=== PATIENT | male | born 1980 | race Caucasian/White ===

== ENCOUNTER 2017-04-27 10:24 | Emergency (ER) | payer OTHER ==
[2017-04-27 10:31] VITALS: BP 148/90; PULSE 93; RESP 16; TEMP 97.8
--- NOTE | 2017-04-27 10:45 | ED ---
ENT HPI - General Chief complaint: Dental/Oral Stated complaint: MOUTH SWELLING Time Seen by Provider: 04/27/17 10:33 Source: patient, RN notes reviewed Mode of arrival: ambulatory Limitations: no limitations - History of Present Illness Initial comments: 36-year-old male presents emergency Department with chief complaint of mouth sores. Patient states started 3 days ago. Patient states that has progressed to his upper and lower gums and left right side. Patient also states that he notices sores on his tongue. Patient states that he started some lisinopril 2 weeks ago but states that he really hasn't been taking it consistently and states the sores on started 3 days ago. Patient denies any fevers or chills. Patient states she's been trying salt water gargles and hydroxide no relief. Patient states his gums are very sensitive at this time. Denies any bleeding or purulent drainage. - Related Data Home Medications Medication Instructions Recorded Confirmed Albuterol Inhaler [Ventolin 1 - 2 puff INHALATION Q6HR PRN 10/30/15 05/25/16 Inhaler] Ibuprofen [Motrin] 800 mg PO Q6HR PRN 05/25/16 05/25/16 Montelukast [Singulair] 10 mg PO HS 05/25/16 05/25/16 Lisinopril [Zestril] 5 mg PO DAILY 04/27/17 04/27/17 Previous Rx's Medication Instructions Recorded Chlorhexidine Gluconate [Peridex] 15 ml PO BID #473 ml 04/27/17 Clindamycin HCl 300 mg PO Q6HR #40 cap 04/27/17 Allergies Allergy/AdvReac Type Severity Reaction Status Date / Time Penicillins Allergy Unknown Verified 04/27/17 10:31 shellfish derived [Shellfish] Allergy Anaphylaxis Verified 04/27/17 10:31 Review of Systems ROS Statement: Those systems with pertinent positive or pertinent negative responses have been documented in the HPI. ROS Other: All systems not noted in ROS Statement are negative. Past Medical History Past Medical History: Asthma, Hypertension History of Any Multi-Drug Resistant Organisms: None Reported, MRSA Date of last positivie culture/infection: right elbow MDRO Source:: 2004 Past Surgical History: Orthopedic Surgery Additional Past Surgical History / Comment(s): right elbow, left knee Past Psychological History: No Psychological Hx Reported Smoking Status: Never smoker Past Alcohol Use History: None Reported Past Drug Use History: None Reported General Exam Limitations: no limitations General appearance: alert, in no apparent distress Head exam: Present: atraumatic, normocephalic, normal inspection Eye exam: Present: normal appearance, PERRL, EOMI. Absent: scleral icterus, conjunctival injection, periorbital swelling ENT exam: Present: mucous membranes moist, TM's normal bilaterally, normal external ear exam. Absent: normal oropharynx (Erythematous Dahms along the edges of the dentition, there are some open sores noted on upper and lower gumline) Neck exam: Present: normal inspection, full ROM. Absent: tenderness, meningismus, lymphadenopathy Respiratory exam: Present: normal lung sounds bilaterally. Absent: respiratory distress, wheezes, rales, rhonchi, stridor Cardiovascular Exam: Present: regular rate, normal rhythm, normal heart sounds. Absent: systolic murmur, diastolic murmur, rubs, gallop, clicks Course Vital Signs 04/27/17 10:27 Temperature 97.8 F Pulse Rate 93 Respiratory 16 Rate Blood Pressure 148/90 O2 Sat by Pulse 98 Oximetry Medical Decision Making - Medical Decision Making 36-year-old male presented for mouth sores. Patient appears to have periodontal disease/gingivitis. Patient we treated with. Since clindamycin. Patient is advised follow-up with dentist on Saturday and return if symptoms worsen. Disposition Clinical Impression: Gingivitis, Periodontal disease Disposition: HOME SELF-CARE Condition: Stable Instructions: Gingivitis (ED) Additional Instructions: Please return to the Emergency Department if symptoms worsen or any other concerns. Prescriptions: Chlorhexidine Gluconate [Peridex] 15 ml PO BID #473 ml Clindamycin HCl 300 mg PO Q6HR #40 cap Referrals: Keny Mendoza Jr, [Primary Care Provider] - 1-2 days Time of Disposition: 10:45
== END 2017-04-27 11:06 | disposition home or self-care (01) ==
LOC: EC 10:24
DX: K05.10 Chronic gingivitis, plaque induced (principal); K05.6 Periodontal disease, unspecified; J45.909 Unspecified asthma, uncomplicated; I10 Essential (primary) hypertension; Z79.899 Other long term (current) drug therapy; Z88.0 Allergy status to penicillin; Z91.013 Allergy to seafood
CPT/HCPCS: 99283

== ENCOUNTER 2017-06-07 08:31 | Emergency (ER) | payer OTHER ==
[2017-06-07] MEDS ORDERED: ONDANSETRON 4 MG/2 ML VIAL IM STA (08:49)
[2017-06-07] MEDS ORDERED: HYDROmorphone 1 MG/ML 1 ML SYRINGE IM STA (08:49)
[2017-06-07] MEDS ORDERED: methylPREDNISolone SOD SUCCI 125 MG/2 ML VIAL IV STA (08:49)
--- NOTE | 2017-06-07 08:53 | ED ---
Back Pain HPI - General Chief Complaint: Back Pain/Injury Stated Complaint: back pain Time Seen by Provider: 06/07/17 08:41 Source: patient, RN notes reviewed Limitations: physical limitation - History of Present Illness Initial Comments: 36-year-old male presents emergency Department with chief complaint of back pain. Patient states started on Saturday felt slightly sore but has progressively gotten worse. Patient states today was worse and unrelieved with his [place] 10/325 home. Patient denies any bowel, bladder incontinence or retention. Patient has a history of back pain states that he states his ongoing issues but progressively gotten worse. Patient has not seen an orthopedic surgeon for her neurosurgeon for his back. Patient denies any fever , chills, nausea, vomiting, diarrhea, dysuria or hematuria. Denies any chest pain or shortness breath. Patient states he was riding a car loader on Saturday and states that when the pain started and seen to worsen pain is better at rest. Pain radiates down his right leg primarily some dullness left. He states the pain radiates all the down to his right heel denies any paresthesias. - Related Data Home Medications Medication Instructions Recorded Confirmed Albuterol Inhaler [Ventolin 1 - 2 puff INHALATION Q6HR PRN 10/30/15 06/07/17 Inhaler] HYDROcodone/APAP 10-325MG [[place] 1 tab PO BID PRN 06/07/17 06/07/17 10-325] Naproxen Sodium [Anaprox DS] 550 mg PO Q12HR 06/07/17 06/07/17 Phentermine HCl [Adipex-P] 37.5 mg PO QAM 06/07/17 06/07/17 Previous Rx's Medication Instructions Recorded Methocarbamol [Robaxin] 500 mg PO TID PRN #15 tab 06/07/17 Ondansetron Odt [Zofran Odt] 4 mg PO Q8HR PRN #10 tab 06/07/17 methylPREDNISolone [Medrol Dose 4 mg PO DIRECTED #1 pack 06/07/17 Pack] oxyCODONE-APAP 7.5-325MG [Percocet 1 tab PO Q6HR PRN #20 tab 06/07/17 7.5-325 mg] Allergies Allergy/AdvReac Type Severity Reaction Status Date / Time iodine Allergy Anaphylaxis Verified 06/07/17 09:38 Penicillins Allergy Unknown Verified 06/07/17 09:38 shellfish derived [Shellfish] Allergy Anaphylaxis Verified 06/07/17 09:38 Review of Systems ROS Statement: Those systems with pertinent positive or pertinent negative responses have been documented in the HPI. ROS Other: All systems not noted in ROS Statement are negative. Past Medical History Past Medical History: Asthma, Hypertension History of Any Multi-Drug Resistant Organisms: None Reported, MRSA Date of last positivie culture/infection: right elbow MDRO Source:: 2004 Past Surgical History: Orthopedic Surgery Additional Past Surgical History / Comment(s): right elbow, left knee Past Psychological History: No Psychological Hx Reported Smoking Status: Never smoker Past Alcohol Use History: None Reported Past Drug Use History: None Reported General Exam Limitations: physical limitation General appearance: alert, in no apparent distress, obese Respiratory exam: Present: normal lung sounds bilaterally. Absent: respiratory distress, wheezes, rales, rhonchi, stridor Cardiovascular Exam: Present: regular rate, normal rhythm, normal heart sounds. Absent: systolic murmur, diastolic murmur, rubs, gallop, clicks GI/Abdominal exam: Present: soft, normal bowel sounds. Absent: distended, tenderness, guarding, rebound, rigid Extremities exam: Present: other (Pain with range of motion lower extremities though his full range of motion neurovascular intact equal color equal warmth pulses are equal bilateral lower extremity) Back exam: Present: tenderness (Lumbar region diffuse greater on the right lumbar), paraspinal tenderness. Absent: full ROM, vertebral tenderness Neurological exam: Present: alert, oriented X3, CN II-XII intact, reflexes normal. Absent: motor sensory deficit Skin exam: Present: warm, dry, intact, normal color. Absent: rash Course Vital Signs 06/07/17 08:36 Temperature 97.4 F L Pulse Rate 73 Respiratory 18 Rate Blood Pressure 134/72 O2 Sat by Pulse 96 Oximetry Medical Decision Making - Medical Decision Making 36-year-old male present emergency department for back pain. Patient has disc herniation L4-L5. Patient has no red flag symptoms no neurological deficits. Patient be given pain medication, steroids and muscle relaxers. Patient be referred to Dr. Cardenas return parameters were discussed. Disposition Clinical Impression: Lumbar disc herniation with radiculopathy Disposition: HOME SELF-CARE Condition: Stable Instructions: Lumbar Disc Herniation (ED) Additional Instructions: Please return to the Emergency Department if symptoms worsen or any other concerns. Prescriptions: Methocarbamol [Robaxin] 500 mg PO TID PRN #15 tab PRN Reason: muscle spasms methylPREDNISolone [Medrol Dose Pack] 4 mg PO DIRECTED #1 pack Ondansetron Odt [Zofran Odt] 4 mg PO Q8HR PRN #10 tab PRN Reason: Nausea oxyCODONE-APAP 7.5-325MG [Percocet 7.5-325 mg] 1 tab PO Q6HR PRN #20 tab PRN Reason: Pain Referrals: Keny Mendoza Jr, DO [Primary Care Provider] - 1-2 days Leon Tariq DO [Doctor of Osteopathic Medicine] - 1-2 days Time of Disposition: 09:46
[2017-06-07] MEDS ORDERED: DIPH,PERTUS(ACELL)TETVAC-LF 0.5 ML VIAL IM ONE (09:18)
--- NOTE | 2017-06-07 09:19 | CT ---
EXAMINATION TYPE: CT lumbar spine wo con DATE OF EXAM: 06/07/2017 9:07 AM COMPARISON: CT lumbar spine dated 10/30/2015 HISTORY: Severe low back pain. Pain down Rt leg CT DLP: 2454.7 mGycm Automated exposure control for dose reduction was used. Unenhanced CT of the lumbar spine was performed. Bone and soft tissue window settings are submitted as well as coronal and sagittal reconstructions. There is redemonstration of a component of congenital spinal canal stenosis at L4. The spinal canal m easures up to 1.2 cm. L1-L2: Normal disc space height. No disc herniation protrusion or central stenosis. No facet joint arthropathy. No evidence for foraminal encroachment. L2-L3: Normal disc space height. No disc herniation protrusion or central stenosis. No facet joint arthropathy. No evidence for foraminal encroachment. L3-L4: Broad-based disc bulge is present creating mild bilateral neural foraminal narrowing and mild to moderate spinal canal stenosis. L4-L5: There is new focality centrally of the disc suggesting with a central disc herniation superimp osed upon a broad-based disc bulge creating mild bilateral neural foraminal narrowing and mild spinal canal stenosis is noted disc herniation effaces the ventral thecal space. L5-S1: Intervertebral disc space narrowing is seen. There is redemonstration of the disc osteophyte complex, eccentric to the left which creates at least moderate left neural foraminal narrowing and mi ld right neural foraminal narrowing. No evidence of spinal canal stenosis. IMPRESSION: 1. New focality of the L4-5 disc suggesting a central disc herniation superimposed upon a broad-based disc bulge, which creates mild spinal canal stenosis and mild bilateral neural foraminal narrowing. 2. Unchanged moderate spinal canal stenosis at L3-L4 as well as at least moderate left neural foramin al narrowing and mild right neural foraminal narrowing at L5-S1.
[2017-06-07 09:44] VITALS: BP 129/63; PULSE 89; RESP 20; TEMP 98
== END 2017-06-07 10:06 | disposition home or self-care (01) ==
LOC: EC 08:31
DX: M51.16 Intervertebral disc disorders with radiculopathy, lumbar region (principal); I10 Essential (primary) hypertension; Z23 Encounter for immunization; Z79.899 Other long term (current) drug therapy; Z88.0 Allergy status to penicillin; Z88.8 Allergy status to other drugs, medicaments and biological substances; Z91.013 Allergy to seafood
CPT/HCPCS: 72131; 90715; 99283; 96374; 96372 ×2; 90471; J2930; J2405; J1170

== ENCOUNTER → 2017-07-18 | Outpatient (CLI) | payer OTHER ==
[2017-07-18 08:55] LABS: Appearance,Urine Clear (Clear); Bilirubin,Urine Negative (Negative); Glucose,Urine (UA) Negative (Negative); Ketones,Urine Negative (Negative); Leukocyte Esterase,Urine Negative (Negative); Nitrite,Urine Negative (Negative); PH, Urine 5.5 (5.0-8.0); Protein,Urine Negative (Negative); Specific Gravity,Urine 1.015 (1.001-1.035); UA Billing (MACRO vs. MICRO) CHEM; Urobilinogen,Urine <2.0 mg/dL (<2.0)
[2017-07-18 09:03] LABS: Basophils % (A) 0 %; CH 29.6; CHCM 34.1; Eosinophils # (A) 0.2 k/uL (0-0.7); Eosinophils % (A) 2 %; HCT 44.3 % (39.0-53.0); HDW 2.75; HGB 15.5 gm/dL (13.0-17.5); Luc # (Auto) 0.13; Luc % (Auto) 1; Lymphocytes # (A) 2.4 k/uL (1.0-4.8); Lymphocytes % (A) 27 %; MCH 30.5 pg (25.0-35.0); MCV 87.1 fL (80.0-100.0); Mean Platelet Volume 7.1; Monocytes # (A) 0.4 k/uL (0-1.0); Monocytes % (A) 5 %; Neutrophils # (A) 5.9 k/uL (1.3-7.7); Neutrophils % (A) 64 %; RBC 5.09 m/uL (4.30-5.90); RDW 13.8 % (11.5-15.5); WBC 9.1 k/uL (3.8-10.6); WBC (Perox) 9.34
[2017-07-18 09:09] LABS: Anion Gap 10 mmol/L; Blood Urea Nitrogen 18 mg/dL (9-20); Calcium 9.3 mg/dL (8.4-10.2); Carbon Dioxide 24 mmol/L (22-30); Chloride 106 mmol/L (98-107); Glucose 92 mg/dL (74-99); Non-African American GFR(MDRD) >60 (>60 ml/min/1.73 sqM); Potassium 4.2 mmol/L (3.5-5.1); Sodium 140 mmol/L (137-145)
[2017-07-18 09:10] LABS: INR 0.9 (<1.2); Partial Thromboplastin Time 25.2 sec (22.0-30.0); Prothrombin Time 9.6 sec (9.0-12.0)
== END | disposition home or self-care (01) ==
LOC: LABPAT 08:27
PROVIDERS: ATTEND Orthopaedic Surgery Orthopaedic Surgery of the Spine
DX: Z01.812 Encounter for preprocedural laboratory examination (principal); M51.27 Other intervertebral disc displacement, lumbosacral region
CPT/HCPCS: 36415; 80048; 81003; 85025; 85610; 85730

== ENCOUNTER 2017-07-22 12:59 | Observation (INO) | payer OTHER ==
[2017-07-18 11:49] VITALS: BMI 46.0
[~2017-07-22 12:59] MED LIST: BACITRACIN 50,000 UNIT, POLYMYXIN B 500,000 UNIT in SODIUM CHLORIDE 0.9% IRRIGATIO 1,00... IRRIGATION ONE; CLINDAMYCIN 600 MG in DEXTROSE 5% IN WATER 50 ML IVPB ONE; DEXAMETHASONE SOD PHOSPHATE 10 MG/ML 1 ML VIAL IV ONE; ONDANSETRON 4 MG/2 ML VIAL IVP ONE
[2017-07-22] MEDS: LACTATED RINGERS 1,000 ML IV SCH (13:36)
[2017-07-22] MEDS ORDERED: LIDOCAINE 1% 20 ML VIAL (10MG/ML) FOR IV START INTRADERMA ONE (13:36)
[2017-07-22] MEDS ORDERED: GLYCOPYRROLATE 0.2 MG/ML 2 ML VIAL ONE (15:23)
[2017-07-22] MEDS ORDERED: LIDOCAINE 1% INJ 10MG/ML (20 ML MDV) ONE (15:23)
[2017-07-22] MEDS ORDERED: PROPOFOL 10 MG/ML 20 ML VIAL IV ONE (15:23)
[2017-07-22] MEDS ORDERED: ROCURONIUM BROMIDE 10 MG/ML 10 ML VIAL IV ONE (15:23)
[2017-07-22] MEDS ORDERED: fentaNYL (PF) 50 MCG/ML 2 ML AMP ONE (15:23)
[2017-07-22] MEDS ORDERED: MIDAZOLAM 2 MG/2 ML VIAL ONE (15:23)
[2017-07-22] MEDS ORDERED: NEOSTIGMINE 1 MG/ML 10 ML VIAL ONE (15:23)
[2017-07-22] MEDS ORDERED: SUCCINYLCHOLINE CHLORIDE VIAL 200 MG/10 ML VIAL IV ONE (15:23)
[2017-07-22] MEDS ORDERED: VANCOMYCIN 2,000 MG in SODIUM CHLORIDE 0.9% 500 ML IVPB ONE (15:45)
[2017-07-22] MEDS ORDERED: GELATIN SPONGE,ABSORB (LARGE) 1 EACH SPONGE TOPICAL ONE (16:13)
[2017-07-22] MEDS ORDERED: BUPIVACAINE (PF) 0.25% 30 ML VIAL SQ ONE (16:13)
[2017-07-22] MEDS ORDERED: THROMBIN (BOVINE) 5,000 UNIT VIAL TOPICAL ONE (16:14)
[2017-07-22] MEDS ORDERED: methylPREDNISolone ACETATE 80 MG/ML 1 ML VIAL MISCELLANE ONE (17:06)
[2017-07-22] MEDS ORDERED: BENZOCAINE/MENTHOL LOZENG 1 EACH LOZENGE MUCOUS MEM PRN (17:28)
[2017-07-22] MEDS ORDERED: KETOROLAC 30 MG/ML 1 ML VIAL IVP PRN (17:28)
[2017-07-22] MEDS ORDERED: HYDROmorphone 1 MG/ML 1 ML SYRINGE IVP PRN (17:28)
[2017-07-22] MEDS ORDERED: MAGNESIUM HYDROXIDE 2,400 MG/10 ML CUP PO PRN (17:28)
[2017-07-22] MEDS ORDERED: DIAZEPAM 5 MG TAB PO PRN (17:28)
[2017-07-22] MEDS ORDERED: HYDROcodone/APAP 5-325MG 1 EACH TAB PO PRN ×2 (17:28)
[2017-07-22] MEDS ORDERED: SODIUM CHLORIDE 0.9% 1,000 ML IV SCH (17:30)
[2017-07-22] MEDS ORDERED: METHOCARBAMOL 500 MG TAB PO PRN (17:34)
[2017-07-22] MEDS ORDERED: ONDANSETRON ODT 4 MG TAB PO PRN (17:34)
[2017-07-22] MEDS ORDERED: HYDROcodone/APAP 10-325MG 1 EACH TAB PO PRN (17:34)
[2017-07-22] MEDS ORDERED: ALBUTEROL NEBULIZED 2.5 MG/3 ML INHALATION PRN (17:34)
--- NOTE | 2017-07-22 17:41 | P.OP ---
Date of Procedure: 07/22/17 Preoperative Diagnosis: Herniated nucleus pulposis L5-S1, left lower extremity radiculopathy, morbid obesity Postoperative Diagnosis: Same plus degenerative disc disease Anesthesia: GETA Pathology: none sent Condition: stable Disposition: PACU Description of Procedure: BRIEF OPERATIVE NOTE Preoperative Diagnosis: Herniated nucleus pulposis L5-S1, left lower extremity radiculopathy, morbid obesity, degenerative disc disease Postoperative Diagnosis: Same Procedure: Laminectomy and decompression L5-S1 Discectomy for decompression L5-S1 Increased level of difficulty for the case due to patient's body habitus and morbid obesity Surgeon: Dr. Tariq Conveyor Belt Repairer: Catracho Gomez is present throughout the entire the case persistence during positioning, dissection, exposure, visualization, and all crucial elements of the case as well as closure. Anesthesia: General anesthesia Estimated blood loss: Approximately 200 mL Complications: None apparent Components implanted: None Disposition: To recovery room in good stable condition. OPERATIVE INDICATIONS The patient has been having issues in their lower back and lower extremities chronically over the past year. He is having worsening of his symptoms particularly at his lower extremities with radicular symptoms. He was found have a large disc herniation L5-S1 which correlate well with his back and lower extremity symptoms. The patient has been through conservative treatment. He is not having any prolonged benefit despite aggressive conservative treatment. He was having worsening of his ability to do activities and is overall function due to his back and lower extremity symptoms. We discussed various treatment options including surgery, and the patient wishes to proceed with surgery We discussed the risk, patient's alternatives and benefits of surgery including but not limited to, risk of bleeding risk of infection, risk of need for further surgery, risk of decreased, loss of motion, loss of function, nerve damage, paralysis, heart attack, blindness and . OPERATIVE SUMMARY After discussing all the risks, patient alternatives and benefits at length, the patient elected to proceed with surgical intervention, signed informed consent, and presented for their procedure. The patient was seen and examined in the preoperative holding area and the surgical site was marked. The patient was given antibiotics and brought to the operating room. The patient was sedated and intubated by anesthesia in standard fashion. The patient was positioned on to the operating room table in a prone position on the appropriate frame which was well-padded and well molded. We were careful to pad any bony prominences and pressure points. We were careful to maintain the patient's cervical spine and good neutral alignment and position throughout. The patient was prepped and draped in a normal standard fashion. An appropriate timeout and keystone protocol performed. We were able to proceed with the surgery. Fluoroscopy was utilized to establish the appropriate level. The local wound area was infiltrated with local anesthetic. An incision was made at the midline longitudinally over the appropriate levels over L5-S1. Dissection was taken down subcutaneously to the level of the fascia which was split midline. The patient is approximately 400 pounds and dissection with retraction was more time consuming and difficult due to his body habitus. This added difficulties in time due to the exposure as well as the operation itself. Dissection was taken over the lamina. Intraoperative fluoroscopy was taken which showed a marker at the appropriate level of L5-S1. With the appropriate level positively confirmed, we were able to proceed with laminectomy. The wound was copiously irrigated and suctioned dry as had been done periodically throughout the case. I performed a laminectomy with a combination of curettes and a high-speed bur and Kerrison rongeurs. A small medial facetectomy was performed again further access. A partial foraminotomy was also performed. Portions of the ligamentum flavum were taken down to expose the dura and traversing nerve root. I was able to mobilize the traversing nerve root and gain access to the disc space. Note was made of obvious compression from the disc. Note was made that there was significant posterior osteophytic spurring and calcification of the posterior disc. This was overlapping the posterior disc itself and causing impingement on the traversing nerve root and thecal sac. The posterior spur had removed piecemeal with pituitaries and Kerrison rongeurs and curettes. This took great care and meticulous technique, but I was able to remove significant portions of the posterior osteophyte in order to access the soft disc material. Protecting the soft tissue structures, a small annulotomy was established. I was able to perform discectomy and remove any extruded disc fragments and any loose fragments from within the disc itself. I was able to further remove posterior osteophyte and extruded fragments. This was all done piecemeal. I was able to get good decompression at the area with no further fragments noted. There is some significant disc desiccation noted. I tried to preserve the disc annulus that appeared stable. There were no further extruded fragments noted. There is no evidence of dural tear or leak. Good hemostasis maintained. The wound was copiously irrigated and suctioned dry. Good decompression and discectomy was noted. We were able to proceed with closure. The fascia was closed for a watertight closure. The subcuticular tissue was closed with absorbable suture. The wound was cleaned and dried and dressed with the appropriate dressing. The drapes were broken down. The patient was gently rolled back onto their hospital bed being careful to maintain their cervical spine and good neutral alignment and position. They were woken up by anesthesia, extubated, and brought to the recovery room in good stable condition. The patient will be admitted to the hospital for observation and for appropriate postoperative care, medical management and monitoring. We will continue to follow them closely about the postoperative course.
--- NOTE | 2017-07-22 18:13 | XR ---
EXAMINATION TYPE: XR lumbar spine 1V, FL guidance operating room DATE OF EXAM: 07/22/2017 CLINICAL HISTORY: Back pain. Lumbar discectomy. TECHNIQUE: Fluoroscopy. COMPARISON: None. FINDINGS/IMPRESSION: Fluoroscopic guidance was provided during procedure performed by Dr. Tariq. A total of 3 seconds of fluoroscopic time was utilized during the procedure and 1 spot images was acqui red.
[2017-07-22 18:16] VITALS: RESP 16
[2017-07-22] MEDS: HYDROmorphone 1 MG/ML 1 ML SYRINGE IVP PRN ×5 (18:23→23:42)
[2017-07-22] MEDS ORDERED: SODIUM CHLORIDE 0.9% 1,000 ML IV ONE (19:14)
[2017-07-22] MEDS: ONDANSETRON 4 MG/2 ML VIAL IVP PRN (19:56)
[2017-07-22] MEDS: NAPROXEN 250 MG TAB PO SCH (22:53)
[2017-07-22 23:37] VITALS: TEMP 97.9
[2017-07-23] MEDS: HYDROmorphone 1 MG/ML 1 ML SYRINGE IVP PRN ×2 (03:33→10:44)
[2017-07-23] MEDS: LACTATED RINGERS 1,000 ML IV SCH (05:59)
[2017-07-23 07:40] VITALS: BP 133/73; PULSE 84
[2017-07-23] MEDS: NAPROXEN 250 MG TAB PO SCH (08:27)
--- NOTE | 2017-07-23 08:50 | P.DS ---
Providers Date of admission: 07/23/17 04:27 Expected date of discharge: 07/23/17 Attending physician: Leon Tariq Primary care physician: Keny Mendoza - Discharge Diagnosis(es) (1) Lumbar back pain with radiculopathy affecting left lower extremity Current Visit: Yes Status: Acute (2) Lumbar degenerative disc disease Current Visit: Yes Status: Acute (3) Morbid obesity with BMI of 45.0-49.9, adult Current Visit: Yes Status: Acute (4) Herniated nucleus pulposus, L5-S1 Current Visit: Yes Status: Acute Hospital Course: This is a pleasant 37-year-old male who presented with L5-S1 herniated nucleus pulposus, left lower extremity radiculopathy, degenerative disc disease, and morbid obesity who failed outpatient conservative therapy. He was admitted for L5-S1 laminectomy and decompression with discectomy. The patient tolerated the procedure well and did well postoperatively. He continues to have some pressure and pain and surgical site, which is expected. He states his left lower extremity radiculopathy symptoms have already significantly improved postsurgically. Condition on day of discharge stable. Patient will be discharged home. Patient was cleared preoperatively for surgery by Dr. Mendoza. Patient currently denies any nausea, vomiting, fever, or chills. Patient is eating and voiding freely without difficulty. Patient may shower Tegaderm dressing intact. Patient may remove Tegaderm dressing in 3 days and shower without a dressing at that time. Patient should keep Steri-Strips intact and allow them to fall off naturally. Patient should refrain from driving until at least after their first follow-up appointment in the office. Patient should avoid excessive bending, lifting, and twisting; no lifting greater than 10 pounds. Patient may resume home medications as previously prescribed as needed for relief of his symptoms. He may resume [place] 10 mg/325 [address] as prescribed [address] Desai. We discussed that if he needs more of this medication he may contact Dr. Desai or he may contact our office for a refill prescription. Physical Exam on day of discharge: Patient is awake, alert, and oriented 3 Vital signs stable Good chest excursion with deep inspiration and expiration Abdomen soft nontender No signs or symptoms of DVT; no calf pain Extensor hallucis longus, plantarflexion, and dorsiflexion positive sustained bilateral lower extremities Incision is clean, dry, and intact; no erythema, purulence, or signs of infection Tegaderm dressing and non-stick Telfa intact Procedures: L5-S1 laminectomy and decompression with discectomy. Patient Condition at Discharge: Stable Plan - Discharge Summary New Discharge Prescriptions: No Action Albuterol Inhaler [Ventolin Inhaler] 1 - 2 puff INHALATION RT-Q6H PRN PRN Reason: Shortness Of Breath Naproxen Sodium [Anaprox DS] 550 mg PO Q12HR HYDROcodone/APAP 10-325MG [[place] 10-325] 1 tab PO BID PRN PRN Reason: Pain Phentermine HCl [Adipex-P] 37.5 mg PO QAM Methocarbamol [Robaxin] 500 mg PO TID PRN #15 tab PRN Reason: muscle spasms Ondansetron Odt [Zofran Odt] 4 mg PO Q8HR PRN #10 tab PRN Reason: Nausea ALPRAZolam [Xanax] 0.5 mg PO DAILY PRN PRN Reason: Anxiety amLODIPine BESYLATE [Norvasc] 5 mg PO QAM Hydrochlorothiazide [Hydrochlorothiazide] 25 mg PO QAM Discharge Medication List Albuterol Inhaler [Ventolin Inhaler] 1 - 2 puff INHALATION RT-Q6H PRN 10/30/15 [ History] HYDROcodone/APAP 10-325MG [[place] 10-325] 1 tab PO BID PRN 06/07/17 [History] Methocarbamol [Robaxin] 500 mg PO TID PRN #15 tab 06/07/17 [Rx] Naproxen Sodium [Anaprox DS] 550 mg PO Q12HR 06/07/17 [History] Ondansetron Odt [Zofran Odt] 4 mg PO Q8HR PRN #10 tab 06/07/17 [Rx] Phentermine HCl [Adipex-P] 37.5 mg PO QAM 06/07/17 [History] ALPRAZolam [Xanax] 0.5 mg PO DAILY PRN 07/18/17 [History] Hydrochlorothiazide [Hydrochlorothiazide] 25 mg PO QAM 07/18/17 [History] amLODIPine BESYLATE [Norvasc] 5 mg PO QAM 07/18/17 [History] Follow up Appointment(s)/Referral(s): Kiba,Catracho, PAC [PHYSICIAN DIMENSION QUARRY SUPERVISOR] - 2 Weeks (Patient may follow-up with Catracho Mendez PA-C or Dr. Ambrosio Tariq at [facility] in 2-3 weeks following discharge. ) Activity/Diet/Wound Care/Special Instructions: 1. Patient may shower with Tegaderm dressing intact. 2. Patient may remove Tegaderm dressing in 3 days and shower without a dressing at that time. 3. Patient should keep Steri-Strips intact and allow them to fall off naturally. 4. Patient should refrain from driving until at least after their first follow- up appointment in the office. 5. Patient should avoid excessive bending, twisting, and lifting; no lifting greater than 10 pounds 6. Take medications as prescribed 7. Do not soak in tub Discharge Disposition: HOME SELF-CARE
[2017-07-23] MEDS ORDERED: VANCOMYCIN 1,500 MG in SODIUM CHLORIDE 0.9% 250 ML IVPB ONE (09:00)
[2017-07-23] MEDS ORDERED: NON-FORMULARY DRUG (Phentermine Hcl [Adipex-P] 37.5 MG) PO SCH (09:00)
[2017-07-23] MEDS ORDERED: HYDROCHLOROTHIAZIDE 25 MG TAB PO SCH (09:00)
[2017-07-23] MEDS ORDERED: SENNOSIDES-DOCUSATE SODIUM 1 EACH TAB PO SCH (09:00)
[2017-07-23] MEDS ORDERED: amLODIPine 5 MG TAB PO SCH (09:00)
[2017-07-23] MEDS ORDERED: FAMOTIDINE 20 MG TAB PO SCH (09:00)
[2017-07-23] MEDS: ONDANSETRON 4 MG/2 ML VIAL IVP PRN (10:44)
== END 2017-07-23 11:23 | disposition home or self-care (01) ==
LOC: OR 12:59 → 5ONC 17:31 → OR 07-23 04:27 → 5ONC 07-23 04:27
PROVIDERS: ADMIT Orthopaedic Surgery Orthopaedic Surgery of the Spine; ATTEND Orthopaedic Surgery Orthopaedic Surgery of the Spine
DX: M51.17 Intervertebral disc disorders with radiculopathy, lumbosacral region (principal); E66.01 Morbid (severe) obesity due to excess calories; Z68.42 Body mass index [BMI] 45.0-49.9, adult; I10 Essential (primary) hypertension; J45.909 Unspecified asthma, uncomplicated; Z88.8 Allergy status to other drugs, medicaments and biological substances; Z88.3 Allergy status to other anti-infective agents; Z88.0 Allergy status to penicillin; Z91.013 Allergy to seafood; Z79.899 Other long term (current) drug therapy; Z79.52 Long term (current) use of systemic steroids
CPT/HCPCS: 86900; 86901; 86850; 72020; 63030; G0378; J2250; J3370 ×2; J0330; J1040; J2710; J2405 ×2; J2001; J3010; J1885; J1170 ×2; J2704

== ENCOUNTER → 2022-10-02 | Outpatient (CLI) | payer OTHER ==
--- NOTE | 2022-10-03 09:35 | MR ---
EXAMINATION TYPE: MR knee LT wo con DATE OF EXAM: 10/02/2022 COMPARISON: NONE HISTORY: Lt knee pain and swelling for years per patient. TECHNIQUE: Multiplanar, multisequence images of the knee is performed without IV contrast. FINDINGS: Slightly suboptimal due to motion artifact MEDIAL MENISCUS: Anterior and posterior horns are intact without tear. LATERAL MENISCUS: Anterior and posterior horns are intact without tear. CRUCIATE LIGAMENTS: The anterior and posterior cruciate ligaments are intact and unremarkable. COLLATERAL LIGAMENTS: The medial collateral ligament and lateral collateral ligament complex are inta ct and unremarkable. EXTENSOR MECHANISM: Visualized quadriceps and patellar tendons are intact. EFFUSION: No significant suprapatellar joint effusion. POPLITEAL CYST: No popliteal/gomes cyst. TRICOMPARTMENT SPACES: Mild narrowing with mild to moderate spurring patellofemoral compartment CARTILAGE: Tricompartment articular cartilage is preserved. BONE MARROW SIGNAL: No focal abnormal marrow signal is appreciated. OTHER: No additional significant abnormality is appreciated. IMPRESSION: No meniscal or ligamentous tear is seen.
== END | disposition home or self-care (01) ==
LOC: RADMRIMAIN 17:02
PROVIDERS: ATTEND Physician Assistant
DX: M23.8X2 Other internal derangements of left knee (principal); M25.562 Pain in left knee; M25.462 Effusion, left knee

== ENCOUNTER → 2023-05-29 | Outpatient (CLI) | payer OTHER ==
--- NOTE | 2023-06-02 21:02 | MR ---
EXAMINATION TYPE: MR knee LT wo con DATE OF EXAM: 05/29/2023 COMPARISON: 10/02/2022 HISTORY: 42-year-old male with M25.462 PAIN IN LEFT KNEE, M75.42 Lt knee pain and swelling TECHNIQUE: Multiplanar, multisequence imaging of the left knee is performed without IV contrast. FINDINGS: The ACL, PCL, and LCL complex are intact. There is mild edema on either side of the intact MCL. In addition, there is mild fluid along the pes anserinus bursa. There is an oblique tear involving the body of the medial meniscus which is mildly extruded. Mild sup erficial cartilage thinning throughout the medial compartment. The lateral meniscus is intact. Lateral compartment articular cartilage volume is maintained. Mild to moderate irregular cartilage thinning throughout the patellar facets of the patellofemoral co mpartment. There is slight lateral patellar translation. Extensor mechanism is intact. Mild inhomogeneous signal at the quadriceps insertion. There is a moderate knee joint effusion without Mclaughlin's cyst. Nonspecific mild subcutaneous soft tissue swelling. Normal popliteal artery anatomy. Mild generalized muscle atrophy. No suspicious bone marrow replaceme nt. IMPRESSION: 1. Grade 1 MCL sprain. 2. Mild pes anserinus bursitis. 3. Oblique tear involving the mildly extruded body of the medial meniscus. 4. Mild overall patellofemoral compartmental OA. 5. Moderate joint effusion. Mild insertional quadriceps tendinosis.
== END | disposition home or self-care (01) ==
LOC: RADMRIMAIN 13:57
PROVIDERS: ATTEND Orthopaedic Surgery
DX: M17.12 Unilateral primary osteoarthritis, left knee (principal); S83.412A Sprain of medial collateral ligament of left knee, initial encounter; S83.242A Other tear of medial meniscus, current injury, left knee, initial encounter; M70.52 Other bursitis of knee, left knee; M75.42 Impingement syndrome of left shoulder; M25.462 Effusion, left knee; M67.864 Other specified disorders of tendon, left knee; M76.52 Patellar tendinitis, left knee; M23.8X2 Other internal derangements of left knee; X58.XXXA Exposure to other specified factors, initial encounter

== ENCOUNTER → 2023-09-20 | Outpatient (CLI) | payer OTHER ==
--- NOTE | 2023-09-22 10:06 | US ---
EXAMINATION TYPE: US kidneys/renal and bladder DATE OF EXAM: 09/20/2023 COMPARISON: NONE CLINICAL INDICATION: Male, 43 years old with history of R31.9 HEMATURIA, UNSPECIFIED,R35.1; Hematuria . EXAM MEASUREMENTS: Right Kidney: 12.2 x 6.3 x 5.7 cm Left Kidney: 13.3 x 6.1 x 8.4 cm Very limited due to patient body habitus and gas. Right Kidney: No hydronephrosis or masses seen Left Kidney: Partially visualized secondary to overlying bowel gas, no significant abnormalities appr eciated. Bladder: Appears wnl Bilateral Jets seen: Yes IMPRESSION: Limited exam secondary to shadowing bowel gas, without significant renal abnormality.
== END | disposition home or self-care (01) ==
LOC: RADUSWWP 15:24
PROVIDERS: ATTEND Family Medicine
DX: R31.9 Hematuria, unspecified (principal); R35.1 Nocturia; R14.3 Flatulence
CPT/HCPCS: 76770

== ENCOUNTER → 2024-01-30 | Outpatient (CLI) | payer OTHER ==
--- NOTE | 2024-01-31 11:48 | MR ---
EXAMINATION TYPE: MR knee RT wo con DATE OF EXAM: 01/30/2024 COMPARISON: None HISTORY: Rt knee pain TECHNIQUE: Multiplanar, multisequence imaging of the right knee is performed without IV contrast. FINDINGS: The exam is moderately limited by involuntary patient motion. There is no bone contusion or fracture. There is a grade 2 strain of the medial collateral ligament. The cruciate and lateral collateral liga ments are intact. Evaluation of the medial meniscus is limited due to motion degradation of the image but a tear of the posterior horn and body of the medial meniscus is strongly suspected. The lateral meniscus is intact . The cruciate and collateral ligaments are intact There is a large subchondral cyst in the subchondral interspinous portion of the tibial plateau. Ther e is mild thinning of the articular cartilage of the medial compartment and knee. There is minimal joint fluid. The patellofemoral cartilage is normal in thickness but is diffusely abnormal in signal intensity on the lateral facet consistent with chondromalacia patella. Quadriceps and patellar tendons are intact. IMPRESSION: 1. Grade 2 strain of the medial meniscus. 2. High suspicion for medial meniscal tear. Exam is limited by involuntary patient motion. 3. Chondromalacia patella. 4. Mild osteoarthritis of the medial compartment
== END | disposition home or self-care (01) ==
LOC: RADMRIMAIN 06:06
PROVIDERS: ATTEND Orthopaedic Surgery
DX: M23.303 Other meniscus derangements, unspecified medial meniscus, right knee (principal); M17.11 Unilateral primary osteoarthritis, right knee; M22.41 Chondromalacia patellae, right knee; S83.241A Other tear of medial meniscus, current injury, right knee, initial encounter; X58.XXXA Exposure to other specified factors, initial encounter

== ENCOUNTER → 2024-02-28 | Outpatient (CLI) | payer OTHER ==
[2024-02-28 10:50] LABS: HCT 46.3 % (39.6-50.0); HGB 15.2 g/dL (13.0-17.0); MCHC 32.8 g/dL (32.0-37.0); MCV 91.3 FL (80.0-97.0); Mean Platelet Volume 10.5 FL (9.5-12.2); NRBC Per 100 WBC 0 X 10*3/uL (0.00-0.01); Platelet Count 260 X 10*3/uL (140-440); RBC 5.07 X 10*6/uL (4.40-5.60); RDW 13.4 % (11.5-14.5); WBC 7.72 X 10*3/uL (4.50-10.00)
== END | disposition home or self-care (01) ==
LOC: LABPAT 07:04
PROVIDERS: ATTEND Orthopaedic Surgery
DX: Z01.812 Encounter for preprocedural laboratory examination (principal)
CPT/HCPCS: 84132; 85027; 93005

== ENCOUNTER 2024-03-03 11:58 | Day surgery (SDC) | payer OTHER ==
[2024-02-27 14:43] VITALS: BMI 45.1
[~2024-03-03 11:58] MED LIST changes: -BACITRACIN 50,000 UNIT, POLYMYXIN B 500,000 UNIT in SODIUM CHLORIDE 0.9% IRRIGATIO 1,00... IRRIGATION ONE; -CLINDAMYCIN 600 MG in DEXTROSE 5% IN WATER 50 ML IVPB ONE; -DEXAMETHASONE SOD PHOSPHATE 10 MG/ML 1 ML VIAL IV ONE; +HYDROmorphone 0.5 MG/0.5 ML SYRINGE IVP PRN; +MIDAZOLAM 2 MG/2 ML VIAL IV PRN; -ONDANSETRON 4 MG/2 ML VIAL IVP ONE; +Pre Op ABX Message 1 EACH MISC MISCELLANE ONE
[2024-03-03] MEDS: LACTATED RINGERS 1,000 ML IV SCH (12:20)
[2024-03-03] MEDS: DEXAMETHASONE SOD PHOSPHATE 4 MG/ML 1 ML VIAL IV ONE (12:50)
[2024-03-03] MEDS: SCOPOLAMINE 1 MG/72 HR PATCH TRANSDERM ONE (12:50)
[2024-03-03] MEDS: ONDANSETRON 4 MG/2 ML VIAL IVP ONE ×2 (12:50→15:30)
[2024-03-03] MEDS: SODIUM CHLORIDE 0.9% 100 ML with ceFAZolin 3,000 MG IV ONE (13:04)
[2024-03-03 13:18] VITALS: TEMP 97.8
[2024-03-03] MEDS ORDERED: HYDROmorphone (PF) 1 MG/ML ONE (13:59)
[2024-03-03] MEDS ORDERED: PROPOFOL 10 MG/ML 20 ML VIAL IV ONE (13:59)
[2024-03-03] MEDS ORDERED: MIDAZOLAM 2 MG/2 ML VIAL ONE (13:59)
[2024-03-03] MEDS ORDERED: fentaNYL (PF) 50 MCG/ML 2 ML AMP ONE (13:59)
[2024-03-03] MEDS ORDERED: SUCCINYLCHOLINE CHLORIDE 200 MG/10 ML VIAL IV ONE (13:59)
[2024-03-03] MEDS ORDERED: KETOROLAC 30 MG/ML 1 ML VIAL ONE (13:59)
[2024-03-03] MEDS ORDERED: LIDOCAINE 2% (PF) 20 MG/ML 5 ML VIAL ONE (13:59)
[2024-03-03] MEDS ORDERED: ceFAZolin 1 GM/50 ML BAG (PMX) ONE (13:59)
[2024-03-03] MEDS: BUPIVACAINE (PF) 0.5% 30 ML VIAL MISCELLANE ONE ×2 (14:00→14:35)
--- NOTE | 2024-03-03 14:42 | P.OP ---
Date of Procedure: 03/03/24 Preoperative Diagnosis: 1. torn medial meniscus right knee 2. Osteoarthritis right knee Postoperative Diagnosis: 1. torn medial meniscus right knee 2. Grade 2 chondromalacia patellofemoral compartment, grade 2-3 chondromalacia medial femoral compartment 3. Synovitis Procedure(s) Performed: 1. arthroscopy of the right knee with partial medial meniscectomy (30% of the meniscus excised) 2. chondroplasty patellofemoral compartment and medial femoral compartment 3. Partial synovectomy of the medial femoral, lateral femoral, and patellofemoral compartments. Anesthesia: GETA Surgeon: Jeff Reece Estimated Blood Loss (ml): 5 Pathology: none sent Condition: stable Disposition: floor Indications for Procedure: this is a 43-year-old gentleman presented to the office with pain in his right knee. An MRI demonstrated torn medial meniscus and after discussing the surgica l and nonsurgical treatment options with him at length, he wishes to proceed with arthroscopic debridement of his right knee. Informed consent was obtained. Operative Findings: the operative findings are consistent with a torn medial meniscus of the right knee, grade 2 chondromalacia the patellofemoral compartment, grade 2-3 chondral malacia patellofemoral compartment,and synovitis Description of Procedure: Patient was seen and evaluated in the preoperative area, the operative site was marked with a skin marker. The patient was then brought to the operating room and given 3 g of Ancef intravenously. A general anesthetic was administered by the anesthesia department. Tourniquet was placed on the right upper thigh and the left lower extremity was then prepped and draped in usual sterile fashion. A universal timeout was then performed confirming the patient's name, surgical site, ALLERGIES, and consent. The limb was then exsanguinated and tourniquet insufflated to 300 mmHg. Standard inferior medial and inferior lateral portals were established in the knee. The trochar was inserted in the inferolateral portal. Examination began at the patellofemoral joint. There is noted to be grade 2 chondral malacia the patellofemoral compartment and a moderate amount of synovitis. Next the medial compartment was visualized. There was a tear of the posterior horn of the medial meniscus. There was grade 2-3 chondral malacia the mediofemoral compartment and synovitis. The notch area was then visualized and the ACL was intact. The Lateral compartment was then visualized and there was a no tear of the lateral meniscus. There was no evidence of chondromalacia, but a mild amount of synovitis. Next, using an arthroscopic shaver and a biter, partial medial meniscectomy was performed stable margins. Approximately 30% of the medial meniscus was excised. a chondroplasty was performed of the patellofemoral and medial femoral compartments. A partial synovectomy is performed of the medial femoral, lateral femoral and patellofemoral compartments of the knee. Knee was then copiously irrigated, instruments removed, incisions were closed with 4-0 nylon. 30 mL of quarter percent plain Marcaine was injected sterilely into the surgical area. A sterile dressing was then applied, and the tourniquet was released. Patient was then transferred to recovery room in stable condition.condition.
[2024-03-03] MEDS: traMADol 50 MG TAB ONE (15:55)
[2024-03-03 16:54] VITALS: RESP 14
[2024-03-03 18:10] VITALS: BP 107/67; PULSE 98
== END 2024-03-03 17:30 | disposition home or self-care (01) ==
LOC: OR 11:58
PROVIDERS: ATTEND Orthopaedic Surgery
DX: S83.241A Other tear of medial meniscus, current injury, right knee, initial encounter (principal); M17.11 Unilateral primary osteoarthritis, right knee; M65.9 Synovitis and tenosynovitis, unspecified; M22.41 Chondromalacia patellae, right knee; I10 Essential (primary) hypertension; J45.909 Unspecified asthma, uncomplicated; Z79.51 Long term (current) use of inhaled steroids; Z79.899 Other long term (current) drug therapy; Z88.0 Allergy status to penicillin; Z91.013 Allergy to seafood; X58.XXXA Exposure to other specified factors, initial encounter
CPT/HCPCS: 29881; J2250; J0330; J1100; J2405; J0690 ×2; J3010; J1885; J1170; J2704; J2001; J0665

== ENCOUNTER 2024-07-10 13:11 | Emergency (ER) | payer OTHER ==
[2024-07-10 13:34] VITALS: BP 139/74; PULSE 92; RESP 18; TEMP 97.9
[2024-07-10] MEDS ORDERED: ASPIRIN 81 MG PO STA (13:36)
[2024-07-10 14:04] LABS: Basophils # (A) 0.1 k/uL (0-0.2); Basophils % (A) 1 %; Eosinophils # (A) 0.3 k/uL (0-0.7); Eosinophils % (A) 3 %; HCT 45.9 % (39.0-53.0); HGB 15.3 gm/dL (13.0-17.5); Lymphocytes # (A) 2.3 k/uL (1.0-4.8); Lymphocytes % (A) 30 %; MCH 29.5 pg (25.0-35.0); MCHC 33.3 g/dL (31.0-37.0); MCV 88.6 fL (80.0-100.0); Mean Platelet Volume 7.7; Monocytes # (A) 0.3 k/uL (0-1.0); Monocytes % (A) 4 %; Neutrophils # (A) 4.8 k/uL (1.3-7.7); Neutrophils % (A) 62 %; Platelet Count 273 k/uL (150-450); RBC 5.18 m/uL (4.30-5.90); RDW 13.5 % (11.5-15.5); WBC 7.7 k/uL (3.8-10.6)
[2024-07-10 14:22] LABS: ALT 25 U/L (4-49); AST 26 U/L (17-59); African American GFR (CKD) >90 (>60 ml/min/1.73 sqM); Albumin 4.3 g/dL (3.5-5.0); Alkaline Phosphatase 52 U/L (38-126); Anion Gap 6 mmol/L; Blood Urea Nitrogen 15 mg/dL (9-20); Calcium 9.6 mg/dL (8.4-10.2); Carbon Dioxide 27 mmol/L (22-30); Chloride 105 mmol/L (98-107); Glucose 123 mg/dL (74-99); INR 0.9 (<1.2); Non-African American GFR(CKD) >90 (>60 ml/min/1.73 sqM); Potassium 3.9 mmol/L (3.5-5.1); Prothrombin Time 9.9 sec (10.0-12.5); Sodium 138 mmol/L (137-145); Total Bilirubin 0.5 mg/dL (0.2-1.3); Total Protein 6.9 g/dL (6.3-8.2)
[2024-07-10 14:30] LABS: NT-Pro-B-Type Natriuretic Pept 23 pg/mL
--- NOTE | 2024-07-10 16:00 | XR ---
EXAMINATION TYPE: XR chest 2V DATE OF EXAM: 07/10/2024 3:53 PM CLINICAL INDICATION: Male, 43 years old with history of difficulty breathing; [facility] COMPARISON: None TECHNIQUE: XR chest 2V Frontal view of the chest. FINDINGS: Lungs/Pleura: There is no evidence of pleural effusion, focal consolidation, or pneumothorax. Pulmonary vascularity: Unremarkable. Heart/mediastinum: Cardiomediastinal silhouette is unremarkable. Musculoskeletal: No acute osseous pathology. IMPRESSION: No acute cardiopulmonary disease/process.
--- NOTE | 2024-07-24 18:34 | ED ---
General Adult HPI - General Chief complaint: Recheck/Abnormal Lab/Rx Stated complaint: leg swelling,dizziness Source: patient Mode of arrival: ambulatory Limitations: no limitations - History of Present Illness Initial comments: Quick Note: Pt is a 44 y/o male presenting for 2 weeks LE swelling and shortness of breath. Had echo done outpatient at [facility]. - Related Data Home Medications Medication Instructions Recorded Confirmed Albuterol Inhaler [Ventolin 1 - 2 puff INHALATION RT-Q6H PRN 10/30/15 03/03/24 Inhaler] Phentermine HCl [Adipex-P] 37.5 mg PO QAM 06/07/17 03/03/24 Ibuprofen [Motrin] 800 mg PO Q8H PRN 02/27/24 03/03/24 Lisinopril-Hctz 10-12.5 mg 1 tab PO DAILY 02/27/24 03/03/24 [Zestoretic 10-12.5] Previous Rx's Medication Instructions Recorded Aspirin 325 mg PO BID 14 Days #28 tab 03/03/24 Sennosides [Senokot] 2 tab PO DAILY PRN #60 tablet 03/03/24 traMADol HCl [Ultram] 1 - 2 tab PO Q6H PRN #32 tab 03/03/24 Allergies Allergy/AdvReac Type Severity Reaction Status Date / Time iodine Allergy Anaphylaxis Verified 07/10/24 13:33 Penicillins Allergy Unknown Verified 07/10/24 13:33 Childhood shellfish derived [Shellfish] Allergy Anaphylaxis Verified 07/10/24 13:33 Review of Systems ROS Statement: Those systems with pertinent positive or pertinent negative responses have been documented in the HPI. Past Medical History Past Medical History: Asthma, Hypertension Additional Past Medical History / Comment(s): BACK PAIN History of Any Multi-Drug Resistant Organisms: None Reported, MRSA Date of last positivie culture/infection: right elbow MDRO Source:: 2004 Past Surgical History: Back Surgery, Orthopedic Surgery Additional Past Surgical History / Comment(s): right elbow, left knee, right knee Past Anesthesia/Blood Transfusion Reactions: No Reported Reaction Past Psychological History: No Psychological Hx Reported Smoking Status: Never smoker Past Alcohol Use History: Rare Past Drug Use History: None Reported - Past Family History Mother Family Medical History: No Reported History General Exam - General Exam Comments Initial Comments: Quick Note/ Brief Physical Exam: Vital signs reviewed General: Well-appearing, nontoxic, no acute distress. Head: Normocephalic, atraumatic Eyes: PERRLA, EOMI ENT: Airway patent Chest: Nonlabored breathing Skin: No visual rash, normal skin tone Neuro: Alert and oriented 3 Musculoskeletal: No gross abnormalities Limitations: no limitations Course Vital Signs 07/10/24 13:29 Temperature 97.9 F Pulse Rate 92 Respiratory 18 Rate Blood Pressure 139/74 O2 Sat by Pulse 98 Oximetry Medical Decision Making - Medical Decision Making Quick Note: Patient seen briefly in ED triage due to bed shortages in main ED. Pt is a 44 y/o gentleman presenting for 2 weeks LE swelling and shortness of breath. On assessment patient well appearing, in NAD, skin pink and well perfused, respirations unlabored. VSS on arrival. I introduced myself to patient and and informed them of plan to initiate workup while awaiting for bed to open up in the main ED. Pt and agreeable with POC. CBC, PT, PTT, D-dimer, troponin, magnesium level, CMP, BNP, urinalysis, chest x-ray, ultrasound of the lower extremities, aspirin, EKG ordered. I was informed by RN that pt left the ED prior to completion of workup and prior to my or another provider's oppurtunity to update them to lab and imaging findings and to discuss further plan of care. - Lab Data Result diagrams: 07/10/24 13:38 07/10/24 13:38 Lab Results 07/10/24 07/10/24 07/10/24 Range/Units 13:38 13:38 13:38 WBC 7.7 (3.8-10.6) k/uL RBC 5.18 (4.30-5.90) m/uL Hgb 15.3 (13.0-17.5) gm/dL Hct 45.9 (39.0-53.0) % MCV 88.6 (80.0-100.0) fL MCH 29.5 (25.0-35.0) pg MCHC 33.3 (31.0-37.0) g/dL RDW 13.5 (11.5-15.5) % Plt Count 273 (150-450) k/uL MPV 7.7 Neutrophils % 62 % Lymphocytes % 30 % Monocytes % 4 % Eosinophils % 3 % Basophils % 1 % Neutrophils # 4.8 (1.3-7.7) k/uL Lymphocytes # 2.3 (1.0-4.8) k/uL Monocytes # 0.3 (0-1.0) k/uL Eosinophils # 0.3 (0-0.7) k/uL Basophils # 0.1 (0-0.2) k/uL PT 9.9 L (10.0-12.5) sec INR 0.9 (<1.2) APTT 27.0 (22.0-30.0) sec D-Dimer 0.21 (<0.60) mg/L FEU Sodium 138 (137-145) mmol/L Potassium 3.9 (3.5-5.1) mmol/L Chloride 105 (98-107) mmol/L Carbon Dioxide 27 (22-30) mmol/L Anion Gap 6 mmol/L BUN 15 (9-20) mg/dL Creatinine 1.02 (0.66-1.25) mg/dL Est GFR (CKD-EPI)AfAm >90 (>60 ml/min/1.73 sqM) Est GFR (CKD-EPI)NonAf >90 (>60 ml/min/1.73 sqM) Glucose 123 H (74-99) mg/dL Calcium 9.6 (8.4-10.2) mg/dL Magnesium 2.0 (1.6-2.3) mg/dL Total Bilirubin 0.5 (0.2-1.3) mg/dL AST 26 (17-59) U/L ALT 25 (4-49) U/L Alkaline Phosphatase 52 (38-126) U/L Troponin I (0.000-0.034) ng/mL NT-Pro-B Natriuret Pep 23 pg/mL Total Protein 6.9 (6.3-8.2) g/dL Albumin 4.3 (3.5-5.0) g/dL 07/10/24 Range/Units 13:38 WBC (3.8-10.6) k/uL RBC (4.30-5.90) m/uL Hgb (13.0-17.5) gm/dL Hct (39.0-53.0) % MCV (80.0-100.0) fL MCH (25.0-35.0) pg MCHC (31.0-37.0) g/dL RDW (11.5-15.5) % Plt Count (150-450) k/uL MPV Neutrophils % % Lymphocytes % % Monocytes % % Eosinophils % % Basophils % % Neutrophils # (1.3-7.7) k/uL Lymphocytes # (1.0-4.8) k/uL Monocytes # (0-1.0) k/uL Eosinophils # (0-0.7) k/uL Basophils # (0-0.2) k/uL PT (10.0-12.5) sec INR (<1.2) APTT (22.0-30.0) sec D-Dimer (<0.60) mg/L FEU Sodium (137-145) mmol/L Potassium (3.5-5.1) mmol/L Chloride (98-107) mmol/L Carbon Dioxide (22-30) mmol/L Anion Gap mmol/L BUN (9-20) mg/dL Creatinine (0.66-1.25) mg/dL Est GFR (CKD-EPI)AfAm (>60 ml/min/1.73 sqM) Est GFR (CKD-EPI)NonAf (>60 ml/min/1.73 sqM) Glucose (74-99) mg/dL Calcium (8.4-10.2) mg/dL Magnesium (1.6-2.3) mg/dL Total Bilirubin (0.2-1.3) mg/dL AST (17-59) U/L ALT (4-49) U/L Alkaline Phosphatase (38-126) U/L Troponin I <0.012 (0.000-0.034) ng/mL NT-Pro-B Natriuret Pep pg/mL Total Protein (6.3-8.2) g/dL Albumin (3.5-5.0) g/dL Disposition Clinical Impression: Shortness of breath Disposition: LEFT AGAINST MEDICAL ADVICE Referrals: Don Ness MD [Primary Care Provider] - 1-2 days
== END 2024-07-10 19:26 | disposition left against medical advice (07) ==
LOC: EC 13:11
CPT/HCPCS: 36415; 71046; 80053; 83735; 83880; 84484; 85025; 85379; 85610; 85730; 93005

== ENCOUNTER → 2024-08-25 | Day surgery (SDC) | payer OTHER ==
[2024-08-20 09:21] VITALS: BMI 47.3
[~2024-08-25] MED LIST changes: +ALPRAZolam 0.25 MG TAB PO PRN; +ALPRAZolam 0.5 MG TAB PO PRN; -HYDROmorphone 0.5 MG/0.5 ML SYRINGE IVP PRN; -MIDAZOLAM 2 MG/2 ML VIAL IV PRN; +NITROGLYCERIN SL TABS 0.4 MG TAB SUBLINGUAL PRN; -Pre Op ABX Message 1 EACH MISC MISCELLANE ONE; +RX INFO: IV CONTRAST WAS GIVEN 1 EACH MISC MISCELLANE PRN; +SODIUM CHLORIDE 0.9% 1,000 ML IV SCH
[2024-08-25] MEDS: IV FLUID CONTINUATION 1,000 ML IV ONE (06:20)
[2024-08-25] MEDS: SODIUM CHLORIDE 0.9% 1,000 ML in EMPTY BAG 1 BAG IV SCH (06:20)
[2024-08-25] MEDS: diphenhydrAMINE 50 MG CAP PO STA (06:27)
[2024-08-25] MEDS: predniSONE 20 MG TAB PO STA (06:28)
[2024-08-25] MEDS: FAMOTIDINE 20 MG TAB PO STA (06:30)
[2024-08-25] MEDS: ASPIRIN 325 MG TAB PO STA (06:32)
[2024-08-25 06:42] VITALS: TEMP 98.1
[2024-08-25 06:43] LABS: African American GFR (CKD) >90 (>60 ml/min/1.73 sqM); Anion Gap 8 mmol/L; Blood Urea Nitrogen 23 mg/dL (9-20); Calcium 9.6 mg/dL (8.4-10.2); Carbon Dioxide 27 mmol/L (22-30); Chloride 103 mmol/L (98-107); Glucose 106 mg/dL (74-99); Non-African American GFR(CKD) >90 (>60 ml/min/1.73 sqM); Potassium 4.3 mmol/L (3.5-5.1); Sodium 138 mmol/L (137-145)
[2024-08-25 07:22] LABS: Basophils # (A) 0.1 k/uL (0-0.2); Basophils % (A) 1 %; Eosinophils # (A) 0.1 k/uL (0-0.7); Eosinophils % (A) 0 %; HCT 47.8 % (39.0-53.0); HGB 15.6 gm/dL (13.0-17.5); Lymphocytes # (A) 2.7 k/uL (1.0-4.8); Lymphocytes % (A) 20 %; MCH 29.1 pg (25.0-35.0); MCHC 32.5 g/dL (31.0-37.0); MCV 89.5 fL (80.0-100.0); Mean Platelet Volume 8.3; Monocytes # (A) 0.7 k/uL (0-1.0); Monocytes % (A) 6 %; Neutrophils # (A) 9.6 k/uL (1.3-7.7); Neutrophils % (A) 72 %; Platelet Count 275 k/uL (150-450); RBC 5.35 m/uL (4.30-5.90); RDW 13.6 % (11.5-15.5); WBC 13.3 k/uL (3.8-10.6)
[2024-08-25] MEDS: MIDAZOLAM 2 MG/2 ML VIAL IVP ONE (07:29)
[2024-08-25] MEDS: fentaNYL (PF) 50 MCG/ML 2 ML AMP IVP ONE (07:29)
[2024-08-25] MEDS: LIDOCAINE 1% INJ 10MG/ML (20 ML MDV) SQ ONE (07:30)
[2024-08-25] MEDS: VERAPAMIL SYRINGE (5 MG/10 ML) INTRAARTER ONE (07:35)
[2024-08-25] MEDS: HEPARIN SODIUM 1,000 UN/ML (10ML VL) IV ONE (07:38)
[2024-08-25] MEDS: IOPAMIDOL-370 100ML BTL INJ ONE (07:51)
[2024-08-25] MEDS: HEPARIN SODIUM,PORCINE (1 ML) 2,500 UNIT in SODIUM CHLORIDE 0.9% 250 ML IRRIGATION PRN (07:52)
[2024-08-25] MEDS: HEPARIN SODIUM,PORCINE 10,000 UNIT in SODIUM CHLORIDE 0.9% 1,000 ML IRRIGATION PRN (07:52)
--- NOTE | 2024-08-25 08:32 | CC ---
CARDIAC CATHETERIZATION REPORT INDICATION: New onset congestive heart failure with cardiomyopathy and abnormal stress test showing ischemia involving inferior wall. PROCEDURE NOTE: After obtaining informed consent, the left heart catheterization and coronary angiogram were performed via the right radial artery using standard Taty catheters. The patient tolerated the procedure well without any obvious immediate complications. Total sedation time was 20 minutes. Right radial artery access was obtained using Seldinger technique, a 6-Tunisian sheath was placed. Catheters and wires were floated into the ascending aorta under fluoroscopic guidance. The patient has IV dye allergy and had been prepped for the same. FINDINGS: 1. Hemodynamics: Left ventricular end-diastolic pressure is 14 mm. There is no significant gradient across the aortic valve. 2. Left ventriculogram: The left ventriculogram was not performed. 3. Angiographic data: a.Right coronary artery: The right coronary artery is a large dominant vessel and is free of significant stenosis. b.The left main coronary artery is a large vessel and is free of disease, divides into left anterior descending coronary artery and circumflex coronary artery. LAD and its branches, circumflex coronary artery and its branches are free of significant stenosis. CONCLUSIONS: 1. Normal coronary arteries. 2. Normal left ventricular end-diastolic pressure. PLAN: I reviewed the angiographic data with the patient and told him that his stress test is a false-positive stress test and the congestive heart failure is unrelated to the ischemic heart disease. We will treat the patient with optimal medical therapy and work aggressively on risk factor modification. MMMARIANNE / IJN: [id number] /
[2024-08-25] MEDS: FUROSEMIDE 40 MG TAB PO STA (08:44)
[2024-08-25] MEDS: POTASSIUM CHLORIDE ER 20 MEQ TAB.ER PO STA (08:45)
[2024-08-25] MEDS: ATORVASTATIN 80 MG TAB PO STA (08:46)
[2024-08-25] MEDS: IBUPROFEN 800 MG TAB PO STA (12:27)
[2024-08-25 15:35] VITALS: BP 140/92; PULSE 84; RESP 16
== END ==
LOC: CATHCVL 05:47
PROVIDERS: ATTEND Internal Medicine Cardiovascular Disease
DX: I50.9 Heart failure, unspecified (principal); I42.9 Cardiomyopathy, unspecified; Z82.49 Family history of ischemic heart disease and other diseases of the circulatory system; Z79.1 Long term (current) use of non-steroidal anti-inflammatories (NSAID); Z88.0 Allergy status to penicillin
CPT/HCPCS: 93458; 80048; 85025; C1769; C1894; J2250; J1644 ×3; J2003; J3010; J7512; Q9967